=== PATIENT | female | born 2000 | race African-American/Black ===

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

== ENCOUNTER 2022-04-13 19:17 | Emergency (ER) | payer MEDICAID, SELFPAY ==
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
[2022-04-13 19:41] VITALS: BP 115/71; PULSE 71; RESP 16; TEMP 36.8; O2SAT 100; BMI 21.2
[2022-04-13] MEDS: Amoxicillin/Potassium Clav 875 MG TABLET PO (19:53)
[2022-04-13] MEDS: Diphth,Pertus(ACell),Tet Adult 0.5 ML SYRINGE IM (19:53)
== END 2022-04-13 20:00 | disposition home or self-care (01) ==
LOC: HO.ED 19:51
PROVIDERS: Emergency Provider Internal Medicine
DX: S71.152A Open bite, left thigh, initial encounter (principal); Y04.1XXA Assault by human bite, initial encounter; Y93.89 Activity, other specified; Y92.59 Other trade areas as the place of occurrence of the external cause; Y99.8 Other external cause status
CPT/HCPCS: 90471; 90715; 99281; 99284

== ENCOUNTER 2022-09-29 18:03 | Emergency (ER) | payer MEDICAID, SELFPAY ==
--- NOTE | ~2022-09-29 | US_ITS ---
EXAMINATION: US OBSTETRICAL ULTRASOUND CLINICAL INFORMATION: Abdominal pain. . COMPARISON: None available. LMP: Unknown. TECHNIQUE: Ultrasound of the maternal pelvis is performed using transabdominal and transvaginal transducers. Transvaginal imaging is performed due to inadequate visualization transabdominally. M-mode Doppler is also performed. FINDINGS: There is a single intrauterine gestational sac with visible yolk sac, embryo/fetus, and cardiac activity. There is no significant subchorionic hemorrhage or hematoma. HR: An active heart rate is seen but could not be accurately measured due to the small size. CRL (crown rump length): 0.1 cm (too small to date). MATERNAL ADNEXA: The right maternal ovary measures 2.8 x 2.3 x 1.8 cm. Corpus luteal cyst measuring 1.5 x 1.4 x 1.2 cm noted. The left maternal ovary measures 2.1 x 1.8 x 1.5 cm. There is no significant maternal adnexal mass. No maternal pelvic ascites. US/US OB pelvic and transvaginal IMPRESSION: 1. Single intrauterine gestation, too small to accurately date. 2. No maternal adnexal mass or pelvic ascites.
[2022-09-29 18:16] VITALS: BP 122/69; BP 142/78; PULSE 58; PULSE 82; RESP 16; TEMP 36.8; O2SAT 97; O2SAT 98; BMI 21.0
[2022-09-29 18:21] VITALS: BP 122/69; PULSE 58; RESP 16; TEMP 36.8; O2SAT 98
--- NOTE | 2022-09-29 18:42 | ED_ITS ---
HPI - General Adult General Chief complaint: Nausea/Vomiting/Diarrhea Stated complaint: Hot/cold flashes, vomiting Time Seen by Provider: 09/29/22 18:41 Source: patient and EMS Mode of arrival: EMS Limitations: no limitations History of Present Illness HPI narrative: Patient is a 21 year old assigned female at with no reported medical history presenting to the emergency department today with nausea, vomiting, and abdominal pain. Patient states that over the last 3 days she has had abdominal pain, nausea, and vomiting. Patient states that her period is late and she is concerned for as well as STI due to a recent new partner she had unprotected sex with. Patient denies any dizziness, lightheadedness, abdominal pain, nausea, vomiting, fever, chills, blurry vision, double vision, loss of vision, chest pain, difficulty breathing, shortness of breath, back pain, night sweats, pain with urination, increased urinary frequency, increased urinary urgency, blood in [his/her/their] urine or stool, syncope or a near syncopal episode, recent trauma or falls, bowel incontinence, bladder incontinence, bowel retention, bladder retention, or any other complaints at this time. Onset (ago): day(s) Location: abdomen Radiation: non-radiation Severity: mild Severity scale (1-10): 2 Quality: aching Pain Consistency: constant Relieving factors: none Exacerbating factors: other (vomiting) Associated symptoms: nausea/vomiting Treatments prior to arrival: none Related Data Previous Rx's Medication Instructions Recorded amoxicillin 500 mg capsule 500 mg PO Q12H 10 days #20 caps 12/11/21 doxycycline hyclate 100 mg capsule 100 mg PO BID #14 caps 12/20/21 amoxicillin 875 mg-potassium 1 tab PO Q12H 7 days #14 tabs 04/13/22 clavulanate 125 mg tablet Allergies Allergy/AdvReac Type Severity Reaction Status Date / Time No Known Allergies Allergy Verified 12/11/21 19:26 Review of Systems Constitutional: Constitutional: Reports no additional constitutional complaints, Denies chills, Denies fever(s) and Denies night sweats Eyes: Eyes: Reports no additional eye complaints, Denies blurry vision, Denies change in vision, Denies diplopia, Denies eye discharge, Denies loss of vision and Denies eye pain ENT: Denies dizziness Cardiovascular: Cardiovascular: Reports no additional cardiovascular com plaints, Denies chest pain, Denies lightheadedness, Denies Loss of Consciousness and Denies dyspnea Respiratory: Respiratory: Reports no additional respiratory complaints and Denies dyspnea Gastrointestinal: Gastrointestinal: Reports abdominal pain, Denies melena, Denies hematochezia, Denies coffee ground emesis, Reports nausea and Reports vomiting Genitourinary: Genitourinary: Denies hematuria, Denies urinary frequency, Denies dysuria, Denies flank pain, Denies urinary incontinence, Denies urinary hesitancy, Denies urinary urgency and Denies vaginal discharge Musculoskeletal: Musculoskeletal: Reports no additional musculoskeletal complaints, Denies numbness and Denies tingling Neurologic: Denies dizziness, Denies loss of vision, Denies numbness and Denies tingling Psychiatric: Psychiatric: Reports no additional psychiatric complaints Endocrine: Endocrine: Reports no additional endocrine complaints Hematologic/Lymphatic: Hematologic/Lymphatic: Reports no additional hematologic/lymphatic complaints Allergic/Immunologic: Allergic/Immunologic: Reports no additional allergic/immunologic complaints PMFSH Past Medical History Attestation statement: The following information was validated with the patient. Source: old records reviewed and nursing notes reviewed Social History Social History Smoked in Last 30 Days: Yes Use of substances other than those prescribed or required for medical reasons: Yes Substance Use Type: Marijuana Substance Use Frequency: Daily Advance Directives: No Advance Directives Information Provided: No Physical Exam ED Vital Signs: Vital Signs - 24 hr 09/29/22 18:16 09/29/22 18:21 09/29/22 20:12 Temperature 98.2 F 98.2 F 97.5 F Pulse Rate 58 58 85 Respiratory Rate 16 16 20 Blood Pressure 122/69 122/69 123/72 Pulse Oximetry 98 98 98 Oxygen Delivery Method Room Air Room Air Room Air BMI result Body Mass Index 21.0 Const General: cooperative, no acute distress, alert and awake Nutritional Appearance: well nourished Orientation/consciousness: patient oriented x3 Limitations: no limitations HENMT Head: Yes normal to inspection and Yes atraumatic Ears: hearing grossly normal bilaterally and external ears normal General nose exam: Normal external nose present, no nasal discharge noted and no epistaxis Face and sinus: Yes normal facial exam, No abrasion and No laceration Mouth: Normal oral and palatal mucosa present, no drooling and no muffled voice Eyes General: appearance normal, both eyes and all related structures Periorbital: periorbital findings normal Eyelids: Yes eyelids normal Conjunctivae: conjunctivae normal Pupils: Equal, round and reactive pupils present EOM: EOMs intact bilaterally Neck Neck: Yes normal visual inspection, Yes full ROM and Yes no lymphadenopathy Chest Chest palpation & inspection: normal inspection of the chest Resp Effort & Inspection: normal respiratory effort and able to speak in complete sentences Auscultation: clear to auscultation bilaterally Cardio Rate: regular rate Rhythm: regular rhythm Heart sounds: S1 normal heart sound present and S2 normal heart sound present GI Inspection: Yes normal to inspection Palpation (GI): Soft to palpation, not firm, nontender and no guarding Neuro General: patient oriented x3 and moves all extremities Cranial nerves: Yes Equal, round and reactive pupils present Cognition (Neuro): normal cognition Motor exam (neuro): 5/5 motor strength present throughout Sensory Exam: Normal double simultaneous stimulation for sensation Coordination: [id number] test normal Extrem General: Yes normal to inspection, Yes full ROM and Yes capillary refill normal Psych Appearance: grossly normal Mental Status: mental status grossly normal Affect: normal affect Attitude: cooperative Thought process: Normal thought process present Thought content: Normal thought content present Insight: Good insight present (Psych) Medications Administered Discontinued Medications Generic Name Dose Route Start Last Admin Trade Name Tino PRN Reason Stop Dose Admin Ceftriaxone Sodium 500 mg/ 0 mg 09/29/22 22:36 09/29/22 22:50 Lidocaine HCl 1 ml IM 09/29/22 22:37 1 kit ONCE ONE Administration Sodium Chloride 1,000 mls @ 999 mls/hr 09/29/22 18:45 09/29/22 22:29 Ns IV 09/29/22 19:45 Infused .Q1H1M RAFA Infusion Ondansetron HCl 4 mg 09/29/22 18:42 09/29/22 19:12 Ondansetron Hcl 4 Mg/2 Ml Vial IVPUSH 09/29/22 18:43 4 mg ONCE ONE Administration Medical Decision Making Medical Decision Making [facility] Narrative: Patient is a 21 year old assigned female at with no reported medical history presenting to the emergency department today with abdominal pain, nausea, and vomiting. Patient's physical exam was unremarkable. Patient[place] [address]. Patient's urine showed no acute process. Patient's OB US showed an intrauterine . I explained my physical exam findings as well as all test results to the patient. I answered all questions asked by the patient. Patient received IV Zofran and fluids which she stated helped her symptoms significantly. I stressed the importance of the patient taking her medication as prescribed. I stressed the importance of the patient following up with her primary care provider and an OBGYN. I stressed the importance of the patient returning to the emergency department immediately if her symptoms were to worsen or if she were to develop any dizziness, shortness of breath, difficulty breathing, chest pain, blurry vision, loss of vision, nausea, vomiting, abdominal pain, fever, chills, back pain, or any other complaints. Patient verbalized agreement and understanding with this treatment plan and discharge. Differential Diagnosis Differential Diagnoses: The differential diagnosis associated with the presentation includes UTI Dehydration Gastroenteritis Admission/Observation Consideration of admission/observation: Escalation of care including admission/observation considered Patient would have been admitted to the hospital had her work up had any findings where hospital admission was appropriate and her clinical presentation warranted hospital admission. Lab Data MDM Lab Attestation statement: I reviewed the patient's lab results. My interpretation of these studies and their corresponding values is that they are grossly normal with the exception of the elevated HCG level which is consistent with . 09/29/22 18:54 09/29/22 18:54 Labs: Lab Results 09/29/22 09/29/22 09/29/22 Range/Units 18:54 18:54 18:54 WBC 9.1 (4.8-10.8) X10*3/uL RBC 4.75 (4.20-5.50) X10*6/uL Hgb 14.5 (12.0-16.0) g/dl Hct 41.9 (37.0-47.0) % MCV 88.2 (80.0-98.0) fL MCH 30.5 (27.0-33.0) pg MCHC 34.6 (31.0-35.0) g/dl RDW 12.1 (11.0-16.0) % Plt Count 274 (160-400) X10*3/uL MPV 9.6 (9.4-12.3) fL Immature Gran % (Auto) 0.1 (0.0-0.4) % Neut % (Auto) 64.6 (45-73) % Lymph % (Auto) 24.4 (20-40) % Simpson % (Auto) 8.6 (2-11) % Eos % (Auto) 1.9 (0-4) % Baso % (Auto) 0.4 (0-2) % Lymph # (Auto) 2.2 (1.2-4.9) X10*3/uL Simpson # (Auto) 0.8 (0.1-1.2) X10*3/uL Eos # (Auto) 0.2 (0.0-0.4) X10*3/uL Baso # (Auto) 0.0 (0.0-0.2) X10*3/uL Abs Immat Gran (auto) 0.01 (0.00-0.03) X10*3/uL Absolute Neuts (auto) 5.9 (2.0-8.3) x10*3/uL Absolute Nucleated RBC 0.000 (0.0-0.012) X10*3/uL Nucleated RBC % (auto) 0.0 (0.0-0.2) /100WBC Sodium 137 (135-145) mmol/L Potassium 4.1 (3.3-5.1) mmol/L Chloride 108 (96-108) mmol/L Carbon Dioxide 22 (22-29) mmol/L Anion Gap 11 L (12-20) BUN 15 (9-16) mg/dL Creatinine 0.66 (0.5-1.4) mg/dL Estim Creat Clear Calc 113.4 Estimated GFR > 60 Random Glucose 96 (60-115) mg/dL Calcium 10.1 (8.4-10.2) mg/dL Magnesium 2.0 (1.6-2.6) mg/dL Total Bilirubin 2.2 H (0.0-1.0) mg/dL AST 17 (5-31) U/L ALT 13 (0-31) U/L Alkaline Phosphatase 64 (39-117) U/L Total Protein 7.4 (6.5-8.0) g/dL Albumin 4.5 (3.5-5.0) g/dL Beta HCG, Quant 58724 mIU/mL Urine Color Urine Appearance Urine pH (5.0-9.0) Ur Specific [place] (1.005-1.025) Urine Protein (Neg-Trace) mg/dL Urine Glucose (UA) (Negative) mg/dL Urine Ketones (Negative) mg/dL Urine Blood (Negative) Urine Nitrite (Negative) Ur Leukocyte Esterase (Negative) Chlam trachomat DNA PCR (Not Detect.) COVID-19 (DORETHA) (Negative) COVID-19 Clin Com N.gonorrhoeae DNA (PCR) (Not Detect.) 09/29/22 09/29/22 09/29/22 Range/Units 18:54 22:07 22:08 WBC (4.8-10.8) X10*3/uL RBC (4.20-5.50) X10*6/uL Hgb (12.0-16.0) g/dl Hct (37.0-47.0) % MCV (80.0-98.0) fL MCH (27.0-33.0) pg MCHC (31.0-35.0) g/dl RDW (11.0-16.0) % Plt Count (160-400) X10*3/uL MPV (9.4-12.3) fL Immature Gran % (Auto) (0.0-0.4) % Neut % (Auto) (45-73) % Lymph % (Auto) (20-40) % Simpson % (Auto) (2-11) % Eos % (Auto) (0-4) % Baso % (Auto) (0-2) % Lymph # (Auto) (1.2-4.9) X10*3/uL Simpson # (Auto) (0.1-1.2) X10*3/uL Eos # (Auto) (0.0-0.4) X10*3/uL Baso # (Auto) (0.0-0.2) X10*3/uL Abs Immat Gran (auto) (0.00-0.03) X10*3/uL Absolute Neuts (auto) (2.0-8.3) x10*3/uL Absolute Nucleated RBC (0.0-0.012) X10*3/uL Nucleated RBC % (auto) (0.0-0.2) /100WBC Sodium (135-145) mmol/L Potassium (3.3-5.1) mmol/L Chloride (96-108) mmol/L Carbon Dioxide (22-29) mmol/L Anion Gap (12-20) BUN (9-16) mg/dL Creatinine (0.5-1.4) mg/dL Estim Creat Clear Calc Estimated GFR Random Glucose (60-115) mg/dL Calcium (8.4-10.2) mg/dL Magnesium (1.6-2.6) mg/dL Total Bilirubin (0.0-1.0) mg/dL AST (5-31) U/L ALT (0-31) U/L Alkaline Phosphatase (39-117) U/L Total Protein (6.5-8.0) g/dL Albumin (3.5-5.0) g/dL Beta HCG, Quant mIU/mL Urine Color Yellow Urine Appearance Clear Urine pH 6.0 (5.0-9.0) Ur Specific [place] 1.020 (1.005-1.025) Urine Protein Negative (Neg-Trace) mg/dL Urine Glucose (UA) Negative (Negative) mg/dL Urine Ketones 80 (Negative) mg/dL Urine Blood Negative (Negative) Urine Nitrite Negative (Negative) Ur Leukocyte Esterase Negative (Negative) Chlam trachomat DNA PCR NOT DETECTED (Not Detect.) COVID-19 (DORETHA) Negative (Negative) COVID-19 Clin Com See Note N.gonorrhoeae DNA (PCR) NOT DETECTED (Not Detect.) Independent Interpretation I performed an independent interpretation of an: Ultrasound Interpretation: My interpretation is in agreement with the radiologist's impression of this i maging study. EXAMINATION:? US OBSTETRICAL ULTRASOUND CLINICAL INFORMATION:? Abdominal pain. . COMPARISON:? None available.? LMP: Unknown. TECHNIQUE: Ultrasound of the maternal pelvis is performed using transabdominal and transvaginal transducers. Transvaginal imaging is performed due to inadequate visualization transabdominally. M-mode Doppler is also performed. ? FINDINGS: There is a single intrauterine gestational sac with visible yolk sac, embryo/fetus, and cardiac activity.? There is no significant subchorionic hemorrhage or hematoma. HR: An active heart rate is seen but could not be accurately measured due to the small size. CRL (crown rump length): ? 0.1 cm (too small to date). MATERNAL ADNEXA: ? ? The right maternal ovary measures 2.8 x 2.3 x 1.8 cm.? Corpus luteal cyst measuring 1.5 x 1.4 x 1.2 cm noted. The left maternal ovary measures 2.1 x 1.8 x 1.5 cm. There is no significant maternal adnexal mass.? No maternal pelvic ascites. US/US OB pelvic and transvaginal IMPRESSION: 1. Single intrauterine gestation, too small to accurately date. 2. No maternal adnexal mass or pelvic ascites. Dictated By: José Tanner MD Signed By: Electronically signed by José Tanner MD 09/29/22 7886 Radiology Impression Discussion of test interpretation with radiology: I have reviewed the radiologist's reading. Independent Historian Clinical information obtained from an independent historian. History obtained from or confirmed by: EMS (EMS provided additional history and confirmed the history provided by the patient.) Discharge Plan Discharge Clinical Impression: Patient Disposition: Home, Self-Care Instructions: (ED) Additional Instructions: Follow up with your primary care provider and an OBGYN. Return to the emergency department immediately if your symptoms worsen or if you develop any dizziness, shortness of breath, difficulty breathing, chest pain, blurry vision, loss of vision, nausea, vomiting, abdominal pain, fever, chills, back pain, or any other complaints. Prescriptions: No Action doxycycline hyclate 100 mg capsule 100 mg PO BID Qty: 14 0RF amoxicillin 500 mg capsule 500 mg PO Q12H 10 Days Qty: 20 0RF amoxicillin-pot clavulanate 875-125 mg tablet 1 tab PO Q12H 7 Days Qty: 14 0RF Referrals: [facility] [Provider Group] (Call to establish and follow up with a primary care provider. If you already have a primary care provider, please follow up with them.) [facility] Primary [facility], [place] [Provider Group] (Call to establish and follow up with a primary care provider. If you already have a primary care provider, please follow up with them.) [facility] [Provider Group] (Call to establish and follow up with a primary care provider. If you already have a primary care provider, please follow up with them.) Dillon Kendrick MD [Physician] - (Call to establish and follow up with an OBGYN.) Interventions: ED Discharge Assessment Last Done: 09/29/22 22:56 Discharge Date/Time: 09/29/22 22:56 Print Language: Latvian
[2022-09-29 18:58] LABS: MANUAL DIFF FLAG NO
[2022-09-29 19:00] LABS: Basophils Percent Auto 0.4 % (0-2); Eosinophils Absolute Auto 0.2 X10*3/uL (0.0-0.4); Eosinophils Percent Auto 1.9 % (0-4); Hematocrit 41.9 % (37.0-47.0); Hemoglobin 14.5 g/dl (12.0-16.0); Imm Gran Abs Auto 0.01 X10*3/uL (0.00-0.03); Imm Gran Pct Auto 0.1 % (0.0-0.4); Lymphocytes Absolute Auto 2.2 X10*3/uL (1.2-4.9); Lymphocytes Percent Auto 24.4 % (20-40); Mean Corpuscular HGB Conc 34.6 g/dl (31.0-35.0); Mean Corpuscular Hemoglobin 30.5 pg (27.0-33.0); Mean Corpuscular Volume 88.2 fL (80.0-98.0); Mean Platelet Volume 9.6 fL (9.4-12.3); Monocytes Absolute Auto 0.8 X10*3/uL (0.1-1.2); Monocytes Percent Auto 8.6 % (2-11); Neutrophils Absolute Auto 5.9 x10*3/uL (2.0-8.3); Neutrophils Percent Auto 64.6 % (45-73); Platelet Count 274 X10*3/uL (160-400); Red Blood Count 4.75 X10*6/uL (4.20-5.50); Red Cell Distribution Width 12.1 % (11.0-16.0); White Blood Count 9.1 X10*3/uL (4.8-10.8)
[2022-09-29] MEDS: ondansetron HCL 4 MG/2 ML VIAL IVPUSH (19:12)
[2022-09-29] MEDS: 0.9 % Sodium Chloride 1,000 ML 999 ML IV (19:12)
[2022-09-29 19:13] LABS: IDNOW Serial# 6674DD1D
[2022-09-29 19:14] LABS: Alanine Aminotransferase 13 U/L (0-31); Albumin Level 4.5 g/dL (3.5-5.0); Alkaline Phosphatase 64 U/L (39-117); Anion Gap 11 (12-20); Aspartate Amino Transferase 17 U/L (5-31); Bilirubin Total 2.2 mg/dL (0.0-1.0); Blood Urea Nitrogen 15 mg/dL (9-16); COVID-19 Test Negative (Negative); Calcium 10.1 mg/dL (8.4-10.2); Carbon Dioxide 22 mmol/L (22-29); Chloride 108 mmol/L (96-108); Creatinine Clr Calc Pharmacy 113.4; Estimated Glomerular Filt Rate > 60; Glucose Random 96 mg/dL (60-115); Potassium 4.1 mmol/L (3.3-5.1); Sodium 137 mmol/L (135-145); Total Protein 7.4 g/dL (6.5-8.0)
[2022-09-29 19:41] LABS: HCG Quantitative 20394 mIU/mL
[2022-09-29 20:12] VITALS: BP 123/72; PULSE 85; RESP 20; TEMP 36.4; O2SAT 98
[2022-09-29 22:17] LABS: Appearance Urine Clear; Color Urine Yellow; Glucose Urine UA Negative (Negative); Leukocyte Esterase Urine Negative (Negative); Nitrite Urine Negative (Negative); Urine Blood Negative (Negative); Urine Ketones 80 mg/dL (Negative); Urine Protein Negative (Neg-Trace)
[2022-09-29] MEDS: cefTRIAXone sodium 500 MG, Lidocaine HCl 1 % MPF 1 ML IM (22:50)
[2022-09-30 01:53] LABS: CT PCR NOT DETECTED (Not Detect.); NG PCR NOT DETECTED (Not Detect.)
[2022-09-30 08:38] LABS: Syphilis Screen Nonreactive (Nonreactive)
[2022-09-30 08:40] LABS: HIV AB/AG Nonreactive (Nonreactive); HIV Num 1 0.09 S/CO (0.00-0.99)
== END 2022-09-29 22:56 | disposition home or self-care (01) ==
PROVIDERS: Physician Assistant Medical; Emergency Provider Emergency Medicine
DX: O26.891 Other specified pregnancy related conditions, first trimester (principal); R10.9 Unspecified abdominal pain; O34.81 Maternal care for other abnormalities of pelvic organs, first trimester; N83.11 Corpus luteum cyst of right ovary; Z3A.01 Less than 8 weeks gestation of pregnancy
CPT/HCPCS: 0353U; 36415; 76801; 76817; 80053; 81003; 83735; 84702; 85025; 86780; 87389; 87635; 96361; 96374; 96375; 99284; J0696; J2405

== ENCOUNTER 2022-09-30 14:08 | Emergency (ER) | payer MEDICAID, SELFPAY ==
[2022-09-30 14:19] VITALS: BP 108/66; PULSE 80; RESP 18; TEMP 35.9; O2SAT 100; BMI 20.9
--- NOTE | 2022-09-30 14:21 | ED.GENADULT ---
HPI - General Adult General Chief complaint: Nausea/Vomiting/Diarrhea Stated complaint: Vomiting/Dehydrated Source: patient, RN notes reviewed and old records reviewed Mode of arrival: ambulatory Limitations: no limitations History of Present Illness HPI narrative: 21-year-old female presents for evaluation of vomiting in Patient was seen here yesterday for similar. She believes she is approximately 6 weeks . This is her 1st Denies any severe abdominal pain. She reports that she is unable to tolerate anything orally No fevers or chills Patient had a confirmed intrauterine yesterday Related Data Previous Rx's Medication Instructions Recorded amoxicillin 500 mg capsule 500 mg PO Q12H 10 days #20 caps 12/11/21 doxycycline hyclate 100 mg capsule 100 mg PO BID #14 caps 12/20/21 amoxicillin 875 mg-potassium 1 tab PO Q12H 7 days #14 tabs 04/13/22 clavulanate 125 mg tablet doxylamine 10 mg-pyridoxine (vit 1 tab PO BID PRN nausea and 09/30/22 B6) 10 mg tablet,delayed release vomiting #20 tabs (Diclegis) Allergies Allergy/AdvReac Type Severity Reaction Status Date / Time No Known Allergies Allergy Verified 09/30/22 14:19 Review of Systems Constitutional: Constitutional: Denies chills, Denies fever(s) and Reports weakness Cardiovascular: Cardiovascular: Denies chest pain and Denies dyspnea Respiratory: Respiratory: Denies cough and Denies dyspnea Gastrointestinal: Gastrointestinal: Denies abdominal pain, Reports nausea and Reports vomiting Genitourinary: Genitourinary: Denies menorrhagia Neurologic: Reports weakness PMFSH Social History Social History Substance Use Type: Marijuana Physical Exam ED Vital Signs: Vital Signs - 24 hr 09/30/22 14:19 Temperature 96.7 F L Pulse Rate 80 Respiratory Rate 18 Blood Pressure 108/66 Pulse Oximetry 100 Oxygen Delivery Method Room Air BMI result Body Mass Index 20.9 Const General: healthy appearing, comfortable, no acute distress, alert and awake Nutritional Appearance: well nourished Orientation/consciousness: patient oriented x3 HENMT Head: Yes normocephalic and Yes atraumatic Eyes Eyelids: Yes eyelids normal Conjunctivae: conjunctivae normal Sclerae: sclerae normal Corneas: corneas normal Pupils: Equal, round and reactive pupils present EOM: EOMs intact bilaterally Neck Neck: Yes full ROM Resp Effort & Inspection: normal respiratory effort, able to speak in complete sentences and not labored Cardio Rate: regular rate Rhythm: regular rhythm GI Inspection: No distended Palpation (GI): Soft to palpation Neuro General: patient oriented x3 Cranial nerves: Yes Equal, round and reactive pupils present and Yes Bilaterally intact EOM present Cognition (Neuro): normal cognition Extrem Other: Moving all extremities well without any obvious deformities Course Course Course Narrative: RME- 21-year-old female presents for evaluation of abdominal pain, nausea vomiting. She reports that yesterday she found out that she was and she can hear my ambulance yesterday. She reports feeling worse and sleeping last night. Plan for labs, hCG, UA Reevaluation(s) Reevaluation #1: Patient reports feeling much better after receiving Zofran and has been able to tolerate Gatorade in the waiting room without any further vomiting, she is requesting discharge at this time. I reviewed her workup I did not see any concerning abnormalities. She has a mild leukocytosis which could be related to the and or vomiting. Low suspicion for surgical abdomen Time: 18:53 Medications Administered Discontinued Medications Generic Name Dose Route Start Last Admin Trade Name Freq PRN Reason Stop Dose Admin Ondansetron HCl 4 mg 09/30/22 14:33 09/30/22 15:37 Ondansetron Odt 4 Mg Tab.Rapdis TRANSLINGU 09/30/22 14:34 4 mg ONCE ONE Administration Medical Decision Making Medical Decision Making [facility] Narrative: 21-year-old female presents for evaluation of vomiting in , she was here last night high for workup confirming intrauterine . She reports that her symptoms are worsened after she went home. Complains of vomiting throughout the morning. she was given 1 dose of Zofran Differential Diagnosis Differential Diagnoses: The differential diagnosis associated with the presentation includes Hyperemesis gravidarum Vomiting in Dehydration IDALIA Lab Data [facility] Lab Attestation statement: I reviewed the patient's lab results. Mild leukocytosis of 12.5 K. No significant anemia, normal platelets. Electrolytes within normal limits, renal function within normal limits. 09/30/22 14:37 09/30/22 14:37 Labs: Lab Results 09/30/22 09/30/22 09/30/22 Range/Units 14:37 14:37 14:37 WBC 12.5 H (4.8-10.8) X10*3/uL RBC 4.80 (4.20-5.50) X10*6/uL Hgb 14.7 (12.0-16.0) g/dl Hct 41.7 (37.0-47.0) % MCV 86.9 (80.0-98.0) fL MCH 30.6 (27.0-33.0) pg MCHC 35.3 H (31.0-35.0) g/dl RDW 12.0 (11.0-16.0) % Plt Count 250 (160-400) X10*3/uL MPV 9.8 (9.4-12.3) fL Immature Gran % (Auto) 0.2 (0.0-0.4) % Neut % (Auto) 84.8 H (45-73) % Lymph % (Auto) 4.7 L (20-40) % [place] % (Auto) 8.9 (2-11) % Eos % (Auto) 1.1 (0-4) % Baso % (Auto) 0.3 (0-2) % Lymph # (Auto) 0.6 L (1.2-4.9) X10*3/uL [place] # (Auto) 1.1 (0.1-1.2) X10*3/uL Eos # (Auto) 0.1 (0.0-0.4) X10*3/uL Baso # (Auto) 0.0 (0.0-0.2) X10*3/uL Abs Immat Gran (auto) 0.03 (0.00-0.03) X10*3/uL Absolute Neuts (auto) 10.6 H (2.0-8.3) x10*3/uL Absolute Nucleated RBC 0.000 (0.0-0.012) X10*3/uL Nucleated RBC % (auto) 0.0 (0.0-0.2) /100WBC Sodium 136 (135-145) mmol/L Potassium 3.7 (3.3-5.1) mmol/L Chloride 108 (96-108) mmol/L Carbon Dioxide 22 (22-29) mmol/L Anion Gap 10 L (12-20) BUN 14 (9-16) mg/dL Creatinine 0.70 (0.5-1.4) mg/dL Estim Creat Clear Calc 106.9 Estimated GFR > 60 Random Glucose 101 (60-115) mg/dL Calcium 10.2 (8.4-10.2) mg/dL Total Bilirubin 2.1 H (0.0-1.0) mg/dL AST 28 (5-31) U/L ALT 17 (0-31) U/L Alkaline Phosphatase 65 (39-117) U/L Total Protein 7.7 (6.5-8.0) g/dL Albumin 4.8 (3.5-5.0) g/dL Lipase 12 (8-78) U/L Beta HCG, Quant 68887 mIU/mL Blood Type Antibody Screen 09/30/22 Range/Units 14:37 WBC (4.8-10.8) X10*3/uL RBC (4.20-5.50) X10*6/uL Hgb (12.0-16.0) g/dl Hct (37.0-47.0) % MCV (80.0-98.0) fL MCH (27.0-33.0) pg MCHC (31.0-35.0) g/dl RDW (11.0-16.0) % Plt Count (160-400) X10*3/uL MPV (9.4-12.3) fL Immature Gran % (Auto) (0.0-0.4) % Neut % (Auto) (45-73) % Lymph % (Auto) (20-40) % [place] % (Auto) (2-11) % Eos % (Auto) (0-4) % Baso % (Auto) (0-2) % Lymph # (Auto) (1.2-4.9) X10*3/uL [place] # (Auto) (0.1-1.2) X10*3/uL Eos # (Auto) (0.0-0.4) X10*3/uL Baso # (Auto) (0.0-0.2) X10*3/uL Abs Immat Gran (auto) (0.00-0.03) X10*3/uL Absolute Neuts (auto) (2.0-8.3) x10*3/uL Absolute Nucleated RBC (0.0-0.012) X10*3/uL Nucleated RBC % (auto) (0.0-0.2) /100WBC Sodium (135-145) mmol/L Potassium (3.3-5.1) mmol/L Chloride (96-108) mmol/L Carbon Dioxide (22-29) mmol/L Anion Gap (12-20) BUN (9-16) mg/dL Creatinine (0.5-1.4) mg/dL Estim Creat Clear Calc Estimated GFR Random Glucose (60-115) mg/dL Calcium (8.4-10.2) mg/dL Total Bilirubin (0.0-1.0) mg/dL AST (5-31) U/L ALT (0-31) U/L Alkaline Phosphatase (39-117) U/L Total Protein (6.5-8.0) g/dL Albumin (3.5-5.0) g/dL Lipase (8-78) U/L Beta HCG, Quant mIU/mL Blood Type A Positive Antibody Screen NEGATIVE Discharge Plan Discharge Clinical Impression: Vomiting of Patient Disposition: Home, Self-Care Instructions: Hyperemesis Gravidarum (ED) Additional Instructions: Take the prescribed Diclegis to help with nausea and vomiting Drink lots of fluids, small sips at a time to help prevent further nausea and vomiting Follow-up with your OBGYN Prescriptions: New doxylamine-pyridoxine (vit B6) [Diclegis] 10-10 mg tablet,delayed release (DR/EC) 1 tab PO BID PRN (Reason: nausea and vomiting) Qty: 20 0RF No Action doxycycline hyclate 100 mg capsule 100 mg PO BID Qty: 14 0RF amoxicillin 500 mg capsule 500 mg PO Q12H 10 Days Qty: 20 0RF amoxicillin-pot clavulanate 875-125 mg tablet 1 tab PO Q12H 7 Days Qty: 14 0RF
[2022-09-30 14:43] LABS: MANUAL DIFF FLAG NO
[2022-09-30 14:47] LABS: Basophils Percent Auto 0.3 % (0-2); Eosinophils Absolute Auto 0.1 X10*3/uL (0.0-0.4); Eosinophils Percent Auto 1.1 % (0-4); Hematocrit 41.7 % (37.0-47.0); Hemoglobin 14.7 g/dl (12.0-16.0); Imm Gran Abs Auto 0.03 X10*3/uL (0.00-0.03); Imm Gran Pct Auto 0.2 % (0.0-0.4); Lymphocytes Absolute Auto 0.6 X10*3/uL (1.2-4.9); Lymphocytes Percent Auto 4.7 % (20-40); Mean Corpuscular HGB Conc 35.3 g/dl (31.0-35.0); Mean Corpuscular Hemoglobin 30.6 pg (27.0-33.0); Mean Corpuscular Volume 86.9 fL (80.0-98.0); Mean Platelet Volume 9.8 fL (9.4-12.3); Monocytes Absolute Auto 1.1 X10*3/uL (0.1-1.2); Monocytes Percent Auto 8.9 % (2-11); Neutrophils Absolute Auto 10.6 x10*3/uL (2.0-8.3); Neutrophils Percent Auto 84.8 % (45-73); Platelet Count 250 X10*3/uL (160-400); White Blood Count 12.5 X10*3/uL (4.8-10.8)
[2022-09-30 15:00] LABS: Alanine Aminotransferase 17 U/L (0-31); Albumin Level 4.8 g/dL (3.5-5.0); Alkaline Phosphatase 65 U/L (39-117); Anion Gap 10 (12-20); Aspartate Amino Transferase 28 U/L (5-31); Bilirubin Total 2.1 mg/dL (0.0-1.0); Blood Urea Nitrogen 14 mg/dL (9-16); Calcium 10.2 mg/dL (8.4-10.2); Carbon Dioxide 22 mmol/L (22-29); Chloride 108 mmol/L (96-108); Creatinine Clr Calc Pharmacy 106.9; Estimated Glomerular Filt Rate > 60; Glucose Random 101 mg/dL (60-115); Lipase 12 U/L (8-78); Potassium 3.7 mmol/L (3.3-5.1); Sodium 136 mmol/L (135-145); Total Protein 7.7 g/dL (6.5-8.0)
[2022-09-30 15:29] LABS: HCG Quantitative 25250 mIU/mL
[2022-09-30] MEDS: Ondansetron ODT 4 MG TAB.RAPDIS TRANSLINGU (15:37)
--- NOTE | 2022-09-30 15:38 | PC.NURSE ---
pt medicated per MAR.
== END 2022-09-30 19:02 | disposition home or self-care (01) ==
PROVIDERS: Physician Assistant; Emergency Provider Emergency Medicine Emergency Medical Services
DX: O21.9 Vomiting of pregnancy, unspecified (principal); Z3A.01 Less than 8 weeks gestation of pregnancy
CPT/HCPCS: 36415; 80053; 83690; 84702; 85025; 86850; 86900; 86901; 99282; 99283

== ENCOUNTER 2024-11-23 15:44 | Emergency (ER) | payer MEDICAID, SELFPAY ==
--- NOTE | ~2024-11-23 | XR_ITS ---
EXAMINATION: XR CHEST CLINICAL INFORMATION: Chest pain COMPARISON: 12/11/2021 TECHNIQUE: Frontal view of the chest was obtained. FINDINGS: No significant abnormality is noted involving the heart, lungs, mediastinum, bony thorax or soft tissues. XR/XR chest 1V IMPRESSION: No acute disease Electronically signed by: Wiley Franklin MD 11/23/2024 05:01 PM EDT RP
[2024-11-23 15:52] VITALS: BP 112/68; BP 128/74; PULSE 88; PULSE 93; RESP 23; TEMP 37.2; O2SAT 96; O2SAT 99; BMI 26.4
[2024-11-23] MEDS: levalbuterol HCL 3.75 MG, Ipratropium Bromide 0.5 MG INHALE (15:55)
--- NOTE | 2024-11-23 15:55 | ECG_ITS ---
Test Reason : CHEST PAIN Blood Pressure : */* mmHG Vent. Rate : 103 BPM Atrial Rate : 103 BPM P-R Int : 168 ms QRS Dur : 80 ms QT Int : 316 ms P-R-T Axes : 72 75 16 degrees QTcB Int : 413 ms Sinus tachycardia Nonspecific T wave abnormality Borderline ECG No previous ECGs available Referred By: Generic ED Physician Electronically Signed By: NOELLE DURAN
[2024-11-23 15:57] VITALS: BP 112/68; PULSE 95; PULSE 97; RESP 26; TEMP 37.2; O2SAT 96; O2SAT 97; O2SAT 98
--- NOTE | 2024-11-23 16:01 | PC.NURSE ---
23 F presents to ED with SOB since waking up this morning, hx asthma but no recent inhaler use. RR even but shallow, no audible wheezing at this time, lungs sound tight. Pt is recieving a duoneb from respiratory. Pt c/o throat pain and now headache, no other complaints. Pt previously intubated for difficulty breathing. Airway is patent. Pt is ambulatory at baseline.
[2024-11-23 16:11] LABS: MANUAL DIFF FLAG NO
[2024-11-23 16:15] LABS: Hematocrit 43.3 % (37.0-47.0); Hemoglobin 14.9 g/dl (12.0-16.0); Imm Gran Abs Auto 0.02 X10*3/uL (0.00-0.03); Imm Gran Pct Auto 0.2 % (0.0-0.4); Lymphocytes Absolute Auto 1.4 X10*3/uL (1.2-4.9); Mean Corpuscular HGB Conc 34.4 g/dl (31.0-35.0); Mean Corpuscular Hemoglobin 30.2 pg (27.0-33.0); Mean Corpuscular Volume 87.8 fL (80.0-98.0); NRBC Abs Auto 0.000 X10*3/uL (0.0-0.012); NRBC Pct Auto 0.0 /100WBC (0.0-0.2); Platelet Count 259 X10*3/uL (160-400); Red Blood Count 4.93 X10*6/uL (4.20-5.50); White Blood Count 10.3 X10*3/uL (4.8-10.8)
[2024-11-23 16:22] LABS: Chloride 108 mmol/L (96-108); Potassium 3.8 mmol/L (3.3-5.1); Sodium 141 mmol/L (135-145)
[2024-11-23 16:28] LABS: IDNOW Serial# 08D9AD1C; Strep A Nucleic Acid Negative (Negative)
[2024-11-23 16:34] LABS: Alanine Aminotransferase 20 U/L (0-31); Albumin Level 4.8 g/dL (3.5-5.0); Alkaline Phosphatase 106 U/L (39-117); Anion Gap 11 (12-20); Aspartate Amino Transferase 25 U/L (5-31); Blood Urea Nitrogen 11 mg/dL (9-16); Calcium 9.7 mg/dL (8.4-10.2); Carbon Dioxide 26 mmol/L (22-29); Creatinine Clr Calc Pharmacy 96.6; Estimated Glomerular Filt Rate > 60; Total Protein 7.4 g/dL (6.5-8.0)
--- NOTE | 2024-11-23 16:47 | ED.URI ---
HPI - URI/Sore Throat General Chief Complaint: Upper Respiratory Symptoms Stated Complaint: SOB, hx: Asthma, no inhaler, lungs sound wheezy Time Seen by Provider: 11/23/24 16:09 History of Present Illness ED Provider: Juancarlos Strong MD HPI Narrative: 23-year-old female with chronic recurrent asthma. Active tobacco marijuana and vapes smoker. Short of breath since about midnight with wheezing. No chest pain no history of DVT or PE. Related Data Previous Rx's ?Medication ?Instructions ?Recorded amoxicillin 500 mg capsule 500 mg PO Q12H 10 days #20 caps 12/11/21 doxycycline hyclate 100 mg capsule 100 mg PO BID #14 caps 12/20/21 amoxicillin 875 mg-potassium 1 tab PO Q12H 7 days #14 tabs 04/13/22 clavulanate 125 mg tablet doxylamine 10 mg-pyridoxine (vit 1 tab PO BID PRN nausea and 09/30/22 B6) 10 mg tablet,delayed release vomiting #20 tabs (Diclegis) prednisone 20 mg tablet 60 mg (3 x 20 mg) PO DAILY 4 days 11/23/24 #12 tabs albuterol sulfate 90 mcg/actuation 2 puff inhalation Q4-6H PRN 11/24/24 aerosol inhaler (Ventolin HFA) shortness of breath or wheezing #8.5 grams Allergies Allergy/AdvReac Type Severity Reaction Status Date / Time No Known Allergies Allergy Verified 11/23/24 15:53 [facility] Social History Social History Alcohol intake: current Alcohol intake frequency: a few times a month Smoked in Last 30 Days: Yes Use of substances other than those prescribed or required for medical reasons: No Substance Use Type: Marijuana Advance Directives: No Advance Directives Information Provided: No Do you have a plan to hurt others: No Plan Patient : No Physical Exam Exam: Exam: EXAM: Gen: Alert, awake, well appearing, well hydrated. It is speaking full sentences but appears mildly distressed with tachypnea Head: Atraumatic Eyes: Anicteric, Normal conjunctiva. ENT: Moist mucosa, no pallor. ? Neck: Supple. Skin: ?No observable rash or bruising on exposed or examined skin Respiratory: Tachypnea rate about 26, speaking full sentences. Mild expiratory wheeze only actively getting respiratory treatment when I initially examined her. Cardiovascular: Tachycardic and regular rhythm. No murmurs or rub. Well perfused periphery, warm extremities. No edema. ? Abdominal: No focal tenderness. Soft, no objective distension. No palpable masses or obvious organomegaly. ?No guarding, no rebound tenderness or other peritoneal findings. : No flank tenderness. Neuro: Alert. Gross movement of all extremities intact. ? Psych: Calm. Cooperative. MSK: No grossly visible deformity. Vital signs: See flowsheet Vital Signs: Vital Signs: Last Vital Signs Temp 0 F L 11/23/24 18:43 Pulse 113 H 11/23/24 18:43 Resp 20 11/23/24 18:43 BP 108/51 L 11/23/24 18:43 Pulse Ox 96 11/23/24 18:43 O2 Del Method Room Air 11/23/24 18:43 BMI result Body Mass Index 26.4 Medications Administered Discontinued Medications Generic Name Dose Route Start Last Admin Trade Name Freq PRN Reason Stop Dose Admin Levalbuterol HCl 3.75 mg/ 0 mg 11/23/24 15:53 11/23/24 15:55 Ipratropium [place] 0.5 mg INHALE 11/23/24 15:54 1 dose ONCE ONE Administration Levalbuterol HCl 2.5 mg/ 0 mg 11/23/24 17:33 11/23/24 17:43 Ipratropium [place] 0.5 mg INHALE 11/23/24 17:34 5 dose ONCE ONE Administration Prednisone 60 mg 11/23/24 16:09 11/23/24 16:27 Prednisone 20 Mg Tablet PO 11/23/24 16:10 60 mg ONCE ONE Administration Medical Decision Making Medical Decision Making MDM Narrative: Medical Decision Makin-year-old female with asthma active smoker with wheeze and relatively abrupt onset shortness of breath. Presumed asthma exacerbation possibly secondary URI she has some mild nasal congestion as well. Afebrile not ill or toxic. No tripoding, drooling or stridor. Preliminary Favored Differential Diagnosis: Asthma exacerbation, URI, among additional considered etiologies Testing Interpreted Independently: ?See below for details Radiology or Lab testing Results Reviewed: ?See below for details Consults: ?See below for details Independent Historians/External Chart Reviews: ?See below for details Social Determinants of Health Impacting MDM/Planning: ?See below for details Lab Data 11/23/24 16:01 11/23/24 16:01 Labs: Lab Results 11/23/24 11/23/24 Range/Units 16:01 18:14 WBC 10.3 (4.8-10.8) X10*3/uL RBC 4.93 (4.20-5.50) X10*6/uL Hgb 14.9 (12.0-16.0) g/dl Hct 43.3 (37.0-47.0) % MCV 87.8 (80.0-98.0) fL MCH 30.2 (27.0-33.0) pg MCHC 34.4 (31.0-35.0) g/dl RDW 12.8 (11.0-16.0) % Plt Count 259 (160-400) X10*3/uL MPV 10.4 (9.4-12.3) fL Immature Gran % (Auto) 0.2 (0.0-0.4) % Neut % (Auto) 76.6 H (45-73) % Lymph % (Auto) 14.0 L (20-40) % [place] % (Auto) 7.5 (2-11) % Eos % (Auto) 1.6 (0-4) % Baso % (Auto) 0.1 (0-2) % Lymph # (Auto) 1.4 (1.2-4.9) X10*3/uL [place] # (Auto) 0.8 (0.1-1.2) X10*3/uL Eos # (Auto) 0.2 (0.0-0.4) X10*3/uL Baso # (Auto) 0.0 (0.0-0.2) X10*3/uL Abs Immat Gran (auto) 0.02 (0.00-0.03) X10*3/uL Absolute Neuts (auto) 7.9 (2.0-8.3) x10*3/uL Absolute Nucleated RBC 0.000 (0.0-0.012) X10*3/uL Nucleated RBC % (auto) 0.0 (0.0-0.2) /100WBC Sodium 141 (135-145) mmol/L Potassium 3.8 (3.3-5.1) mmol/L Chloride 108 (96-108) mmol/L Carbon Dioxide 26 (22-29) mmol/L Anion Gap 11 L (12-20) BUN 11 (9-16) mg/dL Creatinine 0.85 (0.5-1.4) mg/dL Estim Creat Clear Calc 96.6 Estimated GFR > 60 POC Glucose 149 H (60-115) mg/dL Random Glucose 109 (60-115) mg/dL Calcium 9.7 (8.4-10.2) mg/dL Total Bilirubin 1.2 H (0.0-1.0) mg/dL AST 25 (5-31) U/L ALT 20 (0-31) U/L Alkaline Phosphatase 106 (39-117) U/L Total Protein 7.4 (6.5-8.0) g/dL Albumin 4.8 (3.5-5.0) g/dL S. pyogenes GrpA DA Negative (Negative) Discharge Plan Discharge Clinical Impression: Upper respiratory infection, Asthma Patient Disposition: Home, Self-Care Instructions: Asthma (DC) Additional Instructions: DISCHARGE DIAGNOSES: Exacerbation of asthma HISTORY OF PRESENTATION: Wheezing difficulty breathing since last night EMERGENCY DEPARTMENT COURSE,TESTS, TREATMENTS: While in the ED today you received multiple nebulized treatments of leave albuterol and ipratropium as well as prednisone 60 mg DISCHARGE MEDICATIONS: You have been prescribed prednisone for several days. Use your inhaler as needed FOLLOW-UP: ?Call your primary or general physician soon as possible to discuss your symptoms, your ED visit and to discuss follow up plans Call INSTRUCTIONS ?& RETURN PRECAUTIONS: If any symptoms change first call your primary physician, if it is after-hours your primary doctors office should have a provider propulsion motor and generator repairer you can speak with. If the symptoms are severe or very concerning to you then call 911 or return to the ED. Your pulmonary doctor. Stop smoking Juancarlos Strong MD Emergency Physician [facility] Prescriptions: New prednisone 20 mg tablet 60 mg PO DAILY 4 Days Qty: 12 0RF albuterol sulfate [Ventolin HFA] 90 mcg/actuation HFA aerosol inhaler 2 puff inhalation Q4-6H PRN (Reason: shortness of breath or wheezing) Qty: 8.5 0RF No Action doxycycline hyclate 100 mg capsule 100 mg PO BID Qty: 14 0RF amoxicillin 500 mg capsule 500 mg PO Q12H 10 Days Qty: 20 0RF amoxicillin-pot clavulanate 875-125 mg tablet 1 tab PO Q12H 7 Days Qty: 14 0RF doxylamine-pyridoxine (vit B6) [Diclegis] 10-10 mg tablet,delayed release (DR/EC) 1 tab PO BID PRN (Reason: nausea and vomiting) Qty: 20 0RF Interventions: ED Discharge Assessment Last Done: 11/23/24 18:43 Discharge Date/Time: 11/23/24 18:57 Print Language: Tajik
[2024-11-23] MEDS: levalbuterol HCL 2.5 MG, Ipratropium Bromide 0.5 MG INHALE (17:43)
[2024-11-23 17:45] VITALS: PULSE 119; RESP 20; O2SAT 97
[2024-11-23 17:51] VITALS: BP 100/79; PULSE 120; RESP 37; O2SAT 97
[2024-11-23 18:18] LABS: Glucose, Whole Blood 149 mg/dL (60-115)
[2024-11-23 18:43] VITALS: BP 108/51; PULSE 113; RESP 20; TEMP -17.7; TEMP 0; O2SAT 96
== END 2024-11-23 18:57 | disposition home or self-care (01) ==
PROVIDERS: Emergency Provider Emergency Medicine; PCP Family Medicine
DX: J06.9 Acute upper respiratory infection, unspecified (principal); R07.9 Chest pain, unspecified; R06.02 Shortness of breath; J45.909 Unspecified asthma, uncomplicated
CPT/HCPCS: 36415; 71045; 80053; 82947; 85025; 87651; 93005; 94640; 99284; 99285

== ENCOUNTER → 2024-11-23 15:55 | Outpatient (BNV) | payer MEDICAID, SELFPAY | PROVIDERS: Emergency Provider Emergency Medicine; PCP Family Medicine; Visit Provider Internal Medicine | DX: R00.0 Tachycardia, unspecified (principal) | CPT/HCPCS: 93010 ==

== ENCOUNTER → 2024-11-23 15:55 | Outpatient (BNV) | payer MEDICAID, SELFPAY | PROVIDERS: Emergency Provider Emergency Medicine; PCP Family Medicine; Visit Provider Radiology Diagnostic Radiology | DX: R07.9 Chest pain, unspecified (principal) | CPT/HCPCS: 71045 ==